=== PATIENT | male | born 1950 | race Caucasian/White ===

== ENCOUNTER 2018-04-10 00:30 | Emergency (ER) | payer MEDICARE ==
[2018-04-10] MEDS ORDERED: Metoprolol Tartrate 5 MG/5 ML VIAL ONE ×3 (01:03→01:39)
[2018-04-10 01:11] LABS: Band 1 % (5-11); Eosinophils 2 % (0-10); Hemoglobin 14.8 g/dL (14.0-18.0); Lymphocytes 15 % (21-51); MDiff Complete? YES; Mean Corpuscular Hemoglobin 32.6 pg (27.0-31.0); Mean Corpuscular Volume 90.5 fL (78.0-98.0); Mean Platelet Volume 8.3 fL (7.4-10.4); Monocytes 9 % (0-10); Neutrophil 68 % (42-75); PLT Morphology Comment Appears Adequate; Platelet Count 126 thou/uL (130-400); RBC Distribution Width 11.7 % (11.5-14.5); RBC Morphology Normal; Reactive Lymphocytes 4 % (0-10); Red Blood Cell (RBC) Count 4.55 mill/uL (4.70-6.10); White Blood Cell (WBC) Count 8.1 thou/uL (4.8-10.8)
[2018-04-10 01:20] LABS: ALT (SGPT) 19 U/L (8-55); AST (SGOT) 29 U/L (5-34); Albumin 4.1 g/dL (3.4-4.8); Alkaline Phosphatase 59 U/L (40-150); Anion Gap 17 mmol/L (10-20); BUN (Urea Nitrogen) 32 mg/dL (8.4-25.7); Bilirubin, Total 0.9 mg/dL (0.2-1.2); Calc. Creatinine Clearance 0 mL/min (70-130); Calcium 9.1 mg/dL (7.8-10.44); Carbon Dioxide 19 mmol/L (23-31); Chloride 107 mmol/L (98-107); Estimated GFR-MDRD 47; Globulin 2.7 g/dL (2.4-3.5); Glucose 117 mg/dL (80-115); Potassium 4.3 mmol/L (3.5-5.1); Protein, Total 6.8 g/dL (5.8-8.1); Sodium 139 mmol/L (136-145)
[2018-04-10] MEDS ORDERED: Cephalexin 500 MG CAP ONE (01:28)
[2018-04-10] MEDS ORDERED: Sodium Chloride 0.9% 1,000 ML BAG ONE (07:00)
--- NOTE | 2018-04-10 09:42 | RAD ---
PORTABLE CHEST: Date: 04/10/18 PROVIDED CLINICAL HISTORY: Dyspnea. FINDINGS: Comparison with 12/30/15. Cardiac and mediastinal silhouette is within normal limits. Median sternotomy changes are seen. No fo angela consolidation, pleural fluid, or pneumothorax apparent. IMPRESSION: No evidence for an acute cardiopulmonary process. POS: [facility]
== END 2018-04-10 02:52 | disposition home or self-care (01) ==
LOC: MADERS 00:30
DX: I48.91 Unspecified atrial fibrillation (principal); E78.5 Hyperlipidemia, unspecified; I10 Essential (primary) hypertension; I25.10 Atherosclerotic heart disease of native coronary artery without angina pectoris; Z79.899 Other long term (current) drug therapy; Z79.82 Long term (current) use of aspirin; Z79.84 Long term (current) use of oral hypoglycemic drugs
CPT/HCPCS: 71045; 80053; 83880; 84484; 85025; 93005; 96361; 96374; 96376; J7050

== ENCOUNTER 2019-05-05 14:25 | Emergency (ER) | payer MEDICARE ==
[2019-05-05] MEDS ORDERED: Ondansetron ODT 4 MG TAB ONE (14:45)
[2019-05-05] MEDS ORDERED: Morphine 4 MG/ML VIAL ONE (14:56)
[2019-05-05] MEDS ORDERED: Ondansetron PF 4 MG/2 ML Vial ONE (14:56)
[2019-05-05] MEDS ORDERED: Sodium Chloride 0.9% 1,000 ML ONE (14:56)
[2019-05-05 15:14] LABS: #Basophils 0.1 thou/uL (0.0-0.2); #Eosinphils 0.2 thou/uL (0.0-0.7); #Lymphocytes 1.3 thou/uL (1.20-3.40); #Monocytes 0.6 thou/uL (0.11-0.59); #Neutrophils 2.7 thou/uL (1.40-6.50); %Eosinophils 3.5 % (0.0-10.0); %Lymphocytes 26.4 % (21.0-51.0); %Monocytes 12.8 % (0.0-10.0); %Neutrophils 55.3 % (42.0-75.0); Hemoglobin 14.4 g/dL (14.0-18.0); Mean Corpuscular Hemoglobin 31.1 pg (27.0-31.0); Mean Corpuscular Volume 91.3 fL (78.0-98.0); Mean Platelet Volume 8.8 fL (7.4-10.4); Platelet Count 164 thou/uL (130-400); Red Blood Cell (RBC) Count 4.63 mill/uL (4.70-6.10); White Blood Cell (WBC) Count 4.8 thou/uL (4.8-10.8)
[2019-05-05 15:26] LABS: Anion Gap 15 mmol/L (10-20); BUN (Urea Nitrogen) 21 mg/dL (8.4-25.7); Calc. Creatinine Clearance 0 mL/min (70-130); Calcium 9.6 mg/dL (7.8-10.44); Carbon Dioxide 23 mmol/L (23-31); Chloride 108 mmol/L (98-107); Estimated GFR-MDRD 53; Glucose 114 mg/dL (80-115); Potassium 4.2 mmol/L (3.5-5.1); Sodium 142 mmol/L (136-145)
--- NOTE | 2019-05-05 15:43 | CT ---
CT ABDOMEN AND PELVIS WITHOUT CONTRAST: HISTORY: A 68-year-old male with abdominal pain. FINDINGS: Absence of oral and IV contrast reduces the sensitivity of the exam, particularly for evaluation of s olid organs involved. There are calcified granulomas in the lower chest, liver, and spleen. No calcified gallstones are se en. No free air or free fluid is noted in the abdomen or pelvis. A normal appearing appendix is pre sent. There are vascular calcifications without evidence of aneurysmal dilatation of the abdominal a amada. There are degenerative changes in the spine. Bilateral renal cysts are present, including a 13 mm hyperdense cyst arising from the inferior pole o f the right kidney (83 Hounsfield units). bilateral renal calculi. A 4 mm calculus is seen at the left UPJ with associated mild to mod erate left hydronephrosis. No calculi are seen in the right ureter or in the urinary bladder. No ri ght-sided hydroureteronephrosis is seen. IMPRESSION: 1. A 4 mm left ureteropelvic junction calculus with mild to moderate left hydronephrosis. 2. Bilateral renal calculi. 3. Bilateral renal cysts. 4. Old granulomatous disease. POS: [facility]
[2019-05-05 15:45] LABS: Bilirubin Small (Negative); Blood, Urine Large (Negative); Glucose, Urine (Dipstick) Negative (Negative); Leukocyte Negative (Negative); Nitrite Negative (Negative); Protein, Urine (Dipstick) 100 mg/dL (Neg-Trace); Urobilinogen 0.2 mg/dL (Less than 2)
[2019-05-05 15:46] LABS: Clarity Cloudy (Clear)
[2019-05-05 15:52] LABS: Bacteria/HPF 2+ HPF (None Seen); RBC/HPF Greater than 50 HPF (0-3); Squamous Epithelial 0-3 HPF (0-3); WBC/HPF 0-3 HPF (0-3)
[2019-05-05] MEDS ORDERED: Acetaminophen/Codeine 30-300mg Tablet ONE (16:44)
== END 2019-05-05 16:52 | disposition home or self-care (01) ==
LOC: MADERS 14:25
DX: N13.2 Hydronephrosis with renal and ureteral calculous obstruction (principal); I10 Essential (primary) hypertension; E78.5 Hyperlipidemia, unspecified; E78.00 Pure hypercholesterolemia, unspecified; I48.91 Unspecified atrial fibrillation; Z79.899 Other long term (current) drug therapy; Z79.01 Long term (current) use of anticoagulants; Z79.82 Long term (current) use of aspirin; Z79.84 Long term (current) use of oral hypoglycemic drugs
CPT/HCPCS: 74176; 80048; 81003; 81015; 85025; 96374; 96375; J2270; J2405; J7050; Q0162

== ENCOUNTER 2019-05-06 19:27 | Emergency (ER) | payer MEDICARE ==
[2019-05-06] MEDS ORDERED: HYDROcodone/Acetaminophen 10/325 mg Tablet ONE (19:57)
== END 2019-05-06 20:09 | disposition home or self-care (01) ==
LOC: MADERS 19:27
DX: N20.1 Calculus of ureter (principal); E78.5 Hyperlipidemia, unspecified; E78.00 Pure hypercholesterolemia, unspecified; I10 Essential (primary) hypertension; Z79.899 Other long term (current) drug therapy; Z79.01 Long term (current) use of anticoagulants; Z79.82 Long term (current) use of aspirin
CPT/HCPCS: 99283

== ENCOUNTER 2021-01-04 17:03 | Emergency (ER) | payer MEDICARE ==
[2021-01-04 18:09] LABS: #Basophils 0.1 thou/uL (0.0-0.2); #Eosinphils 0.2 thou/uL (0.0-0.7); #Lymphocytes 1.5 thou/uL (1.20-3.40); #Monocytes 0.6 thou/uL (0.11-0.59); #Neutrophils 2.1 thou/uL (1.40-6.50); %Basophils 2.4 % (0.0-1.0); %Eosinophils 3.9 % (0.0-10.0); %Lymphocytes 33.9 % (21.0-51.0); %Neutrophils 46.9 % (42.0-75.0); Hemoglobin 15.5 g/dL (14.0-18.0); Mean Corpuscular HGB CONC 33.2 g/dL (32.0-36.0); Mean Corpuscular Hemoglobin 31.7 pg (27.0-31.0); Mean Corpuscular Volume 95.5 fL (78.0-98.0); Mean Platelet Volume 9.6 fL (7.4-10.4); Platelet Count 176 thou/uL (130-400); RBC Distribution Width 12.1 % (11.5-14.5); Red Blood Cell (RBC) Count 4.88 mill/uL (4.70-6.10); White Blood Cell (WBC) Count 4.5 thou/uL (4.8-10.8)
[2021-01-04 18:20] LABS: ALT (SGPT) 23 U/L (8-55); AST (SGOT) 27 U/L (5-34); Albumin 4.3 g/dL (3.4-4.8); Alkaline Phosphatase 91 U/L (40-110); Anion Gap 14 mmol/L (10-20); BUN (Urea Nitrogen) 19 mg/dL (8.4-25.7); Bilirubin, Total 0.6 mg/dL (0.2-1.2); Calc. Creatinine Clearance 0 mL/min (70-130); Carbon Dioxide 24 mmol/L (23-31); Chloride 108 mmol/L (98-107); Globulin 2.6 g/dL (2.4-3.5); Glucose 112 mg/dL (83-110); Potassium 3.8 mmol/L (3.5-5.1); Protein, Total 6.9 g/dL (5.8-8.1); Sodium 142 mmol/L (136-145)
== END 2021-01-04 18:23 | disposition home or self-care (01) ==
LOC: MADERS 17:03
DX: I10 Essential (primary) hypertension (principal); E78.5 Hyperlipidemia, unspecified; E78.00 Pure hypercholesterolemia, unspecified; I48.91 Unspecified atrial fibrillation; E11.9 Type 2 diabetes mellitus without complications; Z79.01 Long term (current) use of anticoagulants; Z79.84 Long term (current) use of oral hypoglycemic drugs; Z79.899 Other long term (current) drug therapy
CPT/HCPCS: 80053; 84484; 85025; 93005